=== PATIENT | male | born 1940 | race Caucasian/White ===

== ENCOUNTER 2016-04-08 13:57 | Inpatient (IN) | payer OTHER, BC ==
[~2016-04-08] VITALS: Ht 188 cm; Wt 86.2 kg
--- NOTE | ~2016-04-08 | HC ---
[facility] [place] [address] CONSULTATION Name: EDDASUBHASH Ruthann Room #: 535-P [facility] IN ..#: [id number] Admission: 04/08/16 Attend Phys: Narendra Love MD Discharge: Date of : 40 Report #: [id number] THIS REPORT FOR: //name// CC: Darryl Love DATE OF SERVICE: 04/08/2016 HISTORY OF PRESENT ILLNESS: This is a very pleasant 75-year-old male patient who apparently had a left hip replacement at [facility] approximately 15 days ago. He was eating lunch when he crossed his legs and felt his left hip "pop out of place." The patient said he had significant discomfort and subsequently sought medical attention. Apparently, when he had his hip placed, he was told he had a "myocardial infarction," but upon questioning it appears it was mostly symptomatic bradycardia with significant pauses of up to 8 seconds. He did not have any of the standard myocardial infarction treatment, but did undergo permanent pacemaker. Upon further questioning, he has had a history of vasovagal syncope for quite some time. He also has orthostatic hypotension noted. He is on Eliquis for episodes of paroxysmal atrial fibrillation and had been on amiodarone previously, had been discontinued and reinitiated. He now presented for treatment and consultation obtained for preop risk assessment and cardiovascular management. PAST MEDICAL HISTORY: Significant for: 1. Paroxysmal atrial fibrillation. 2. Vasovagal syncope. 3. Orthostatic hypotension. 4. Degenerative joint disease. ALLERGIES: PENICILLINS. PAST SURGICAL HISTORY: Significant for: 1. Left hip replacement. 2. Back surgery. 3. Permanent pacemaker implantation. SOCIAL HISTORY: The patient is . Does not smoke or consume alcohol. He does not follow particular exercise regimen or dietary restriction. IMAGING STUDIES: Electrocardiogram demonstrates a dual chamber pacing with normal function. LABORATORY DATA: Noted in the chart and reviewed. [facility] [address] [place] [address] CONSULTATION Name: SUBHASH BAÑUELOS Room #: 535-P [facility] IN [facility].#: [id number] Admission: 04/08/16 Attend Phys: Narendra Love MD Discharge: Date of : 40 Report #: [id number] MEDICATIONS AT HOME: Spiriva inhaler, Singulair, Prilosec, Eliquis, Pacerone, magnesium citrate and Mobic. RADIOLOGICAL STUDIES: Left hip bipolar arthroscopy with dislocation as noted. REVIEW OF SYSTEMS: Except for symptoms previously mentioned and those commensurate with comorbid states, the 10-point review of systems is negative. PHYSICAL EXAMINATION: GENERAL: Well-developed and well-nourished white male, resting comfortably, in no acute distress. HEENT: Normocephalic, atraumatic. Pupils are equal, round, reactive to light and accommodation. Extraocular muscles are intact. Sclerae and conjunctivae are anicteric. NECK: JVD is normal. Carotid upstrokes are bilaterally symmetrical. No bruits are heard. No thyromegaly. No lymphadenopathy. LUNGS: Clear to auscultation. No wheezes, rhonchi or crackles. No CVA tenderness. CARDIAC: Demonstrates a regular rhythm. Normal first and second heart sounds. No ventricular or atrial gallops, no rubs noted. No murmurs. No lifts or heaves, PMI normal. ABDOMEN: Soft, nontender, nondistended. Normal bowel sounds. EXTREMITIES: Without cyanosis, clubbing or edema. Distal pulses are intact. DTR symmetrical. NEUROLOGIC: Cranial nerves 2-12 are grossly normal and symmetrical. PSYCHIATRIC: Alert, oriented with normal affect. SKIN: Demonstrates a healing pacemaker incision in the left upper chest. No calor, rubor, or turgor. IMPRESSION AND PLAN: 1. Left hip arthroscopy dislocation as per orthopedic surgery. 2. Vasovagal syncope with symptomatic bradycardia; today, the pacing appears to be stable, no need to make any changes at this juncture. 3. Orthostatic hypotension, no symptoms currently. 4. Paroxysmal atrial fibrillation. He is anticoagulated on amiodarone, doing very well clinically. We will continue this for the moment. 5. Cardiovascular risk assessment: The patient's procedure is going to be done on propofol. In view of this and in view of the absence of any recent ischemic abnormalities or left ventricular dysfunction, he is a low risk for proposed procedure under proposed anesthesia. This denotes a less than 3%-5% risk of cardiac events. <ELECTRONICALLY SIGNED> By: Temo Desai MD 04/09/16 1154 2137 0940 Temo Desai MD /nt
--- NOTE | ~2016-04-08 | HC ---
[facility] [place] [address] CONSULTATION Name: SUBHASH BAÑUELOS Room #: 535-P [facility] IN M.R.#: [id number] Admission: 04/08/16 Attend Phys: Narendra Love MD Discharge: 04/09/16 Date of : 40 Report #: [id number] THIS REPORT FOR: //name// CC: Darryl Love DATE OF CONSULTATION: 04/08/2016. REASON FOR CONSULTATION: Left hip dislocation. HISTORY OF PRESENT ILLNESS: The patient is a 75-year-old gentleman who had a left total hip arthroplasty done by Dr. Aquino at [facility] about 2 weeks ago. He was out to lunch today and crossed his legs and felt a pop in his hip and was unable to walk or stand. He was brought to the Emergency Room and found to have a dislocation of the left total hip arthroplasty. He did have a complication after his surgery of a possible [place] versus sick sinus syndrome and had a pacemaker placed. ALLERGIES: PENICILLIN. PAST MEDICAL HISTORY: Include left total hip replacement, back surgery and pacemaker. SOCIAL HISTORY: Does not smoke, drink or use illicit drugs. MEDICATIONS: Have been reviewed and are on the chart. PHYSICAL EXAMINATION: GENERAL: Well-developed, well-nourished male in no acute distress. He is alert and oriented x 3, pleasant, cooperative with exam. EXTREMITIES: Examination of left lower extremity shows him to hold his leg external rotation and externally rotated and in slight flexion. He has a bandage over his anterolateral hip, possibly being an anterolateral approach. He is neurologically intact distally with 2+ pitting edema of the foot. X-RAY EXAMINATION: AP pelvis, AP, lateral left hip show him to have an anterior superior left hip dislocation. PLAN: We will plan for closed reduction in the operating room once his n.p.o. status has been at 8 hours. We will keep him overnight and have therapy see him in the morning and then be discharged home. I did speak with Dr. Aquino's office and they are aware of his situation and he will follow up with Dr. Aquino once he is discharged. [address] [address] CONSULTATION Name: SUBHASH BAÑUELOS Room #: 535-P [facility] IN M.R.#: [id number] Admission: 04/08/16 Attend Phys: Narendra Love MD Discharge: 04/09/16 Date of : 40 Report #: [id number] Thank you for allowing us to participate in care of the patient. <ELECTRONICALLY SIGNED> By: Pedro Burden MD 04/15/16 2107 2149 0547 Pedro Burden MD /nt
--- NOTE | ~2016-04-08 | O ---
[facility] [place] [address] OPERATIVE REPORT Name: SUBHASH BAÑUELOS Room #: 535-P [facility] IN M.R.#: [id number] Admission: 04/08/16 Attend Phys: Narendra Love MD Discharge: 04/09/16 Date of : 40 Report #: [id number] THIS REPORT FOR: //name// CC: Darryl Love DATE OF SERVICE: 04/08/2016 PREOPERATIVE DIAGNOSIS: Left total hip arthroplasty dislocation. POSTOPERATIVE DIAGNOSIS: Left total hip arthroplasty dislocation. PROCEDURE: Closed reduction, left total hip arthroplasty. SURGEON: Pedro Burden M.D. TUBE CUTTER OPERATOR: Stephanie Amezcua PA-C. ANESTHESIA: MAC. COMPLICATIONS: None. SPECIMENS: None. CONDITION UPON LEAVING THE OPERATING ROOM: Stable. INDICATIONS FOR PROCEDURE: The patient is a 75-year-old gentleman who had a left total hip arthroplasty performed by Dr. Aqunio 2 weeks ago at [facility]. He was at home doing well and was at may today, crossed his legs over and felt an immediate pop in his left hip. He was brought to the emergency room and found to have a left hip dislocation. After discussion with him, he elected for closed reduction of his left hip. DESCRIPTION OF PROCEDURE: Risks, benefits, alternatives, and complications were discussed in detail with the patient including but not limited to risks of anesthesia; risk of damage to nerves, arteries, blood vessels; risks for infection and bleeding; risk for inability to reduce to closed and need for an open procedure. The patient was then brought to the operating room, and monitored anesthesia was induced. Upon adequate anesthesia, timeout was performed, properly identifying the patient and procedure. Pressure was held over the iliac crest by my training assistant, and traction was pulled on the leg, and internal rotation was performed as this was an anterior superior dislocation. There was an obvious pop and reduction of the hip joint. There was smooth range of motion after this. An AP hip x-ray was taken and found to have adequate reduction of the [facility] [address] [place] [address] OPERATIVE REPORT Name: EDDASUBHASH Room #: 535-P [facility] IN M.R.#: [id number] Admission: 04/08/16 Attend Phys: Narendra Love MD Discharge: 04/09/16 Date of : 40 Report #: [id number] hip. He was awoken from anesthesia and went to the recovery room under care of anesthesia postoperatively. <ELECTRONICALLY SIGNED> By: Pedro Burden MD 04/15/16 2107 [id number] [id number] Pedro Burden MD /nt
[2016-04-08] MEDS ORDERED: SINGULAIR 10 MG10 M1 PO (14:09)
[2016-04-08] MEDS ORDERED: SPIRIVA INH (14:09)
[2016-04-08] MEDS ORDERED: ELIQUIS5 MG PO (14:10)
[2016-04-08] MEDS ORDERED: PRILOSEC 20 MG20 MG PO (14:10)
[2016-04-08] MEDS ORDERED: PACERONE 200 M200 M1 PO (14:11)
[2016-04-08] MEDS ORDERED: MAGNESIUM CITR100 MG PO (14:11)
[2016-04-08] MEDS ORDERED: MOBIC7.5 MG PO (14:12)
[2016-04-08 16:19] VITALS: BP 134/73
[2016-04-08] MEDS ORDERED: PRAVACHOL20 MG PO (17:26)
[2016-04-08] MEDS ORDERED: THERA-M1 EAC1 PO (17:27)
[2016-04-08] MEDS ORDERED: PROBIOTIC1 EAC1 PO (17:27)
[2016-04-08] MEDS ORDERED: VITAMIN B125000 MCG PO (17:28)
[2016-04-08 19:13] VITALS: BP 146/86
[2016-04-08 22:10] VITALS: BP 142/75
[2016-04-09 03:10] VITALS: BP 114/59
[2016-04-09 05:43] LABS: HEMATOCRIT 26.7 % (42.0-52.0); MCH 33.6 pg (26.0-34.0); MCHC 33.8 % (28.0-37.0); MCV 99.3 fL (80.0-100.0); RBC 2.69 mil/uL (4.50-6.00); RDW 14.5 % (10.5-14.5); WBC 5.3 thou/uL (4.0-11.0)
[2016-04-09 06:11] LABS: ALBUMIN 3.2 g/dL (3.4-5.0); CALCIUM 8.3 mg/dL (8.5-10.1); CREATININE 1.6 mg/dL (0.6-1.3); POTASSIUM 4.4 mmol/L (3.5-5.1); TOTAL BILIRUBIN 0.8 mg/dL (<0.1-1.0); TOTAL PROTEIN 6.2 g/dL (6.4-8.2)
[2016-04-09 07:06] VITALS: BP 134/78
[2016-04-09 10:01] VITALS: BP 134/78
[2016-04-09 11:41] VITALS: BP 134/78
== END 2016-04-09 12:30 | disposition home or self-care (01) | DRG 560 ==
LOC: ER 13:57 → EROBS 15:21 → 5S 15:32
PROVIDERS: Emergency Medicine
PROC: 0SWBXJZ Revision of Synthetic Substitute in Left Hip Joint, External Approach (ICD-10-PCS; principal; 2016-04-08)
DX: T84.021A Dislocation of internal left hip prosthesis, initial encounter (principal); E44.1 Mild protein-calorie malnutrition; I10 Essential (primary) hypertension; I25.10 Atherosclerotic heart disease of native coronary artery without angina pectoris; Z96.642 Presence of left artificial hip joint; I48.0 Paroxysmal atrial fibrillation; M19.90 Unspecified osteoarthritis, unspecified site; R55 Syncope and collapse; Y83.8 Other surgical procedures as the cause of abnormal reaction of the patient, or of later complication, without mention of misadventure at the time of the procedure; Y92.89 Other specified places as the place of occurrence of the external cause; I25.2 Old myocardial infarction; Z95.0 Presence of cardiac pacemaker; Z88.0 Allergy status to penicillin; Z79.01 Long term (current) use of anticoagulants

== ENCOUNTER → 2017-05-30 | Outpatient (CLI) | payer OTHER, BC ==
[~2017-05-30] MED LIST: ELIQUIS5 MG PO; FLOMAX0.4 MG PO; MAGNESIUM CITR100 MG PO; MOBIC7.5 MG PO; PACERONE 200 M200 M1 PO; PRAVACHOL20 MG PO; PRILOSEC 20 MG20 MG PO; PROBIOTIC1 EAC1 PO; SINGULAIR 10 MG10 M1 PO; SPIRIVA INH; THERA-M1 EAC1 PO; VITAMIN B125000 MCG PO
== END ==
LOC: RAD 14:54
DX: Z01.812 Encounter for preprocedural laboratory examination (principal); I51.7 Cardiomegaly; Z95.0 Presence of cardiac pacemaker

== ENCOUNTER → 2017-05-31 | Outpatient (CLI) | payer OTHER, BC ==
[2017-05-31 16:14] LABS: CREATININE 1.4 mg/dL (0.7-1.3); POTASSIUM 5.1 mmol/L (3.5-5.1)
== END ==
LOC: CAT 15:11
PROVIDERS: Internal Medicine
DX: Z01.812 Encounter for preprocedural laboratory examination (principal)

== ENCOUNTER → 2017-08-30 | Outpatient (CLI) | payer OTHER, BC ==
[~2017-08-30] MED LIST changes: -FLOMAX0.4 MG PO
[2017-08-30 09:08] LABS: HEMATOCRIT 38.2 % (42.0-52.0); MCH 32.6 pg (26.0-34.0); MCHC 33.9 g/dL (28.0-37.0); RBC 3.98 mil/uL (4.50-6.00); RDW 14.7 % (10.5-14.5)
[2017-08-30 09:27] LABS: CALCIUM 9.2 mg/dL (8.5-10.1); CREATININE 1.6 mg/dL (0.7-1.3); POTASSIUM 4.4 mmol/L (3.5-5.1); TOTAL BILIRUBIN 0.7 mg/dL (<0.1-1.0); TOTAL PROTEIN 6.9 g/dL (6.4-8.2)
== END ==
LOC: CAT 06:47 → LABMALL 06:47 → CAT 17:27
PROVIDERS: Internal Medicine
DX: Z01.812 Encounter for preprocedural laboratory examination (principal); I72.9 Aneurysm of unspecified site; I25.10 Atherosclerotic heart disease of native coronary artery without angina pectoris; I48.91 Unspecified atrial fibrillation; I89.8 Other specified noninfective disorders of lymphatic vessels and lymph nodes; M47.894 Other spondylosis, thoracic region

== ENCOUNTER 2017-09-07 07:02 | Inpatient (IN) | payer OTHER, BC ==
[~2017-09-07] VITALS: Ht 182.9 cm; Wt 93.9 kg
--- NOTE | ~2017-09-07 | P ---
[facility] [place] [address] PROCEDURE REPORT Name: SUBHASH BAÑUELOS Room #: 211-P [facility] IN M.R.#: [id number] Admission: 09/07/17 Attend Phys: Nate Frazier MD Discharge: 09/08/17 Date of : 40 Report #: [id number] THIS REPORT FOR: //name// CC: Temo Frazier PREOPERATIVE DIAGNOSIS: Atrial fibrillation. POSTOPERATIVE DIAGNOSIS: Atrial fibrillation. HISTORY: The patient is a 76-year-old with a history of sick sinus syndrome, status post Medtronic pacemaker implantation with recurrent AFib despite antiarrhythmic drugs who is here for an ablation. PROCEDURES PERFORMED: 1. AFib ablation, CPT code 63712. 2. 3D mapping, CPT code 81802. 3. Intracardiac echo, CPT code 35477. 4. Pacemaker programming, CPT code 18462 5. Pacemaker reprogramming, CPT code 79741. ANESTHESIA: The patient underwent general anesthesia with no anesthesia related complications. DESCRIPTION OF PROCEDURE: The patient underwent informed consent. We discussed the details of the procedure including the risks, which include but not limited to bleeding, infection, vascular damage, cardiac perforation and pneumothorax. He understood these risks and is willing to proceed. As such, the patient was brought to the EP laboratory in a fasting and sedated state, prepped and draped in a sterile fashion. I obtained access to the right femoral vein times 3, placing an 8-Tristanian, 9-Tristanian and 7-Tristanian short sheath using the modified Seldinger technique. Next under fluoroscopy, I placed a decapolar catheter easily in the coronary sinus and an ICE catheter in the right atrium. Prior to the initiation of the EP study, his pacemaker was interrogated and found to be functioning normally and it was reprogrammed to the DDD mode. At baseline, the patient was in atrial fibrillation with a ventricular rate of 687 milliseconds, QRS duration 90 milliseconds and QT interval 400 milliseconds. Using intracardiac echocardiography, I verified that there was a left atrial appendage, left superior and left inferior pulmonary vein and right superior and right inferior pulmonary veins. The septum appeared to be mildly thickened. These echo images were then merged with the cardiac CT scan. Next, the patient was systemically heparinized and a transseptal was performed along the mid anterior aspect of the interatrial septum. I used a Evergreen needle for my transseptal and entered the left atrium. I advanced my wire into the left superior pulmonary vein, but I could not advance my SL1 into the left atrium. I therefore removed the SL1 and placed the cryo sheath up and using some gentle [address] [address] PROCEDURE REPORT Name: BAÑUELOSSUBHASH Room #: 211-P [facility] IN M.R.#: [id number] Admission: 09/07/17 Attend Phys: Nate Frazier MD Discharge: 09/08/17 Date of : 40 Report #: [id number] forward pressure this crossed into the left atrium. Next, using a Biosense Lam Lasso catheter, I obtained baseline measurements of the left atrium. Next, I placed the cryoablation balloon into the left atrium. I started by isolating the left superior pulmonary vein. This vein was quite large and the balloon went deeply into the vessel. I did pull it back to prevent excessively cold temperatures. During the first freeze, the vein was isolated within 30 seconds and I performed a 3-minute freeze as well as a 200 second freeze. Afterwards this vein appeared to be isolated. I then turned my attention to the left inferior pulmonary vein. The first freeze was 240 seconds in duration and there was significant slowing of the potentials, but not isolation. So, a second freeze was performed where I pulled the balloon more inferiorly and the vein isolated within 38 seconds. The second freeze was 4 minutes in duration. I then turned my attention to the right superior pulmonary vein. I performed a 4-minute and a 3-minute freeze. The vein isolated during the first freeze at 54 seconds. I then turned my attention to the right inferior pulmonary vein. I performed a 4-minute and a 3-minute freeze. The vein isolated during the first freeze at 46 seconds. As such, I checked all the veins. They appear to be isolated. The patient was cardioverted with 200 joules with orthodox of sinus rhythm. I then performed pacing from all the veins and there was evidence of entrance and exit block. Post-ablation, the patient was in sinus rhythm with a sinus cycle length of 1000 milliseconds, DC interval 230 milliseconds, QRS 97 milliseconds, QT interval 45 milliseconds. As such, my sheaths were pulled to the right atrium. Using intracardiac ultrasound, I verified that there was no pericardial effusion. The pacemaker was reprogrammed to its original settings and I did program on atrial ATP with 4 rounds of burst followed by 4 rounds of ramp in the atrium. The patient awoke neurologically and hemodynamically intact. No complications and no significant bleeding. CONCLUSIONS: 1. Successful AFib ablation with isolation of the pulmonary veins. 2. Successful pacemaker reprogramming. <ELECTRONICALLY SIGNED> By: Nate Frazier MD 09/09/17 1622 1417 0543 Nate Frazier MD /nt
--- NOTE | ~2017-09-07 | D ---
[facility] [place] [address] DISCHARGE SUMMARY Name: SUBHASH BAÑUELOS Room #: 211-P [facility] IN M.R.#: [id number] Admission: 09/07/17 Attend Phys: Nate Frazier MD Discharge: 09/08/17 Date of : 40 Report #: [id number] THIS REPORT FOR: //name// CC: Temo Frazier DATE OF SERVICE: 09/08/2017 DISCHARGE DIAGNOSES: 1. Atrial fibrillation. 2. Sick sinus syndrome, status post pacemaker implantation. PROCEDURES PERFORMED: AFib ablation. The patient is a 76-year-old with history of AFib and sick sinus syndrome who has failed medical management is here for an ablation. The patient underwent successful AFib ablation with no complications. HOSPITAL COURSE: The patient was monitored in the CCU overnight. On the day of discharge, the patient was doing well. He denied any chest pain, shortness of breath, PND, orthopnea, presyncope or syncope. On physical exam, heart was regular in rate and rhythm. Lungs were clear to auscultation bilaterally. His right groin showed no significant bruising or hematoma. On telemetry, he remained in an atrial paced rhythm with no recurrent atrial fibrillation. As such, he was deemed stable for discharge home. Discharge instructions were reviewed. He will continue on same diet. In terms of his medications, he will continue with amiodarone and his current anticoagulation regimen. We will plan to see him back in 3 months in the clinic. <ELECTRONICALLY SIGNED> By: Nate Frazier MD 09/09/17 1622 0850 1002 Nate Frazier MD /nt
[2017-09-07 07:22] VITALS: BP 136/99
[2017-09-07 07:32] LABS: ABSOLUTE NEUTROPHILS 2.6 thou/uL (1.4-8.2); BASOPHILS 1.4 % (0.0-2.0); EOSINOPHILS 6.6 % (0.0-3.0); HEMATOCRIT 37.5 % (42.0-52.0); HEMOGLOBIN 12.9 gm/dL (14.0-18.0); LYMPHOCYTES 30.4 % (24.0-44.0); MCH 33.3 pg (26.0-34.0); MCHC 34.5 g/dL (28.0-37.0); MCV 96.5 fL (80.0-100.0); MONOCYTES 9.5 % (1.0-8.0); PLATELET COUNT 158 thou/uL (150-400); POLYS 52.1 % (36.0-66.0); RBC 3.89 mil/uL (4.50-6.00); RDW 14.8 % (10.5-14.5); WBC 5.1 thou/uL (4.0-11.0)
[2017-09-07 07:38] LABS: CALCIUM 9.2 mg/dL (8.5-10.1); CREATININE 1.6 mg/dL (0.7-1.3); POTASSIUM 4.1 mmol/L (3.5-5.1)
[2017-09-07 07:44] LABS: ALBUMIN 3.9 g/dL (3.4-5.0); APTT 26.8 Seconds (24.5-32.8); INR 1.2; PROTIME 11.8 Seconds (9.3-11.4); TOTAL BILIRUBIN 0.6 mg/dL (<0.1-1.0); TOTAL PROTEIN 7.1 g/dL (6.4-8.2)
[2017-09-07] MEDS ORDERED: FLOMAX0.4 MG PO (07:47)
[2017-09-07 15:33] VITALS: BP 123/77
[2017-09-07 20:20] VITALS: BP 110/61
[2017-09-08 01:17] VITALS: BP 127/67; BP 99/60
[2017-09-08 04:52] VITALS: BP 134/71
[2017-09-08 07:10] VITALS: BP 117/70
[2017-09-08 10:49] VITALS: BP 117/70
== END 2017-09-08 11:05 | disposition home or self-care (01) | DRG 274 ==
LOC: CATH 07:02 → 2N 13:14 → CATH 14:34 → ENTRNSPT 09-08 10:54 → EDTRNSPTSTS 09-08 10:58 → 2N 09-08 11:05
PROVIDERS: Internal Medicine Cardiovascular Disease
PROC: 4A133B1 Monitoring of Arterial Pressure, Peripheral, Percutaneous Approach (ICD-10-PCS; principal; 2017-09-07)
PROC: 02583ZZ Destruction of Conduction Mechanism, Percutaneous Approach (ICD-10-PCS; principal; 2017-09-07)
PROC: 02K83ZZ Map Conduction Mechanism, Percutaneous Approach (ICD-10-PCS; principal; 2017-09-07)
PROC: 03HY32Z Insertion of Monitoring Device into Upper Artery, Percutaneous Approach (ICD-10-PCS; principal; 2017-09-07)
PROC: 4A133J1 Monitoring of Arterial Pulse, Peripheral, Percutaneous Approach (ICD-10-PCS; principal; 2017-09-07)
DX: I48.0 Paroxysmal atrial fibrillation (principal); I49.5 Sick sinus syndrome; J44.9 Chronic obstructive pulmonary disease, unspecified; N18.9 Chronic kidney disease, unspecified; Z96.659 Presence of unspecified artificial knee joint; E78.5 Hyperlipidemia, unspecified; Z79.899 Other long term (current) drug therapy; I42.8 Other cardiomyopathies; Z87.891 Personal history of nicotine dependence; Z88.0 Allergy status to penicillin; Z79.01 Long term (current) use of anticoagulants
CPT/HCPCS: 10081; 62110; 62900; 65020; 65040; 65043; 70005

== ENCOUNTER → 2018-08-23 | Outpatient (CLI) | payer OTHER, BC ==
[~2018-08-23] MED LIST changes: +FLOMAX0.4 MG PO
--- NOTE | 2018-08-23 15:41 | 2DMMODE ---
[facility] [place] [address] 2 D/M-MODE ECHOCARDIOGRAM Name: SUBHASH BAÑUELOS [facility] [id number] ������������� Admission: 08/23/18 ������������� Attend Phys: Nate Frazier Discharge: ��� ������������� ��� Date of : 40 Date of Service: 08/23/18 1541 �� Report #: [id number] �������� ��������������������������������������������[id number] THIS REPORT FOR: //name// APPROVED REPORT Study performed: 08/23/2018 14:08:55 EXAM: Comprehensive 2D, Doppler, and color-flow Echocardiogram Patient Location: Out-Patient Room #: Echo lab 1 Status: routine BSA: 2.08 HR: 71 bpm BP: 110/54 mmHg Rhythm: Pacemaker Other Information Study Quality: Adequate Indications Pacemaker Fatigue 2D Dimensions IVSd: 15.48 (7-11mm) LVOT Diam: 20.74 (18-24mm) LVDd: 41.51 mm PWd: 13.63 (7-11mm) Ascending Ao: 38.41 (22-36mm) LVDs: 28.59 (25-40mm) Aortic Root: 37.69 mm IVC: 9.00 mm Volumes Left Atrial Volume (Systole) Single Plane 4CH: 90.61 mL Single Plane 2CH: 86.79 mL LA ESV Index: 45.00 mL/m2 Aortic Valve AoV Peak Raleigh.: 1.25 m/s AO Peak Gr.: 6.25 mmHg LVOT Max P.37 mmHg LVOT Max V: 1.05 m/s GEETA Vmax: 2.82 cm2 Mitral Valve E/A Ratio: 3.4 MV Decel. Time: 240.18 ms MV E Max Raleigh.: 0.91 m/s [facility] [address] [place] [address] 2 D/M-MODE ECHOCARDIOGRAM Name: BAÑUELOSSUBHASH COATS Room #: REG [facility]#: [id number] ������������� Admission: 08/23/18 ������������� Attend Phys: Nate Frazier Discharge: ��� ������������� ��� Date of : 40 Date of Service: 08/23/18 1541 �� Report #: [id number] �������� ��������������������������������������������[id number] MV A Raleigh.: 0.27 m/s MV PHT: 69.65 ms IVRT: 59.98 ms Pulmonary Valve PV Peak Raleigh.: 1.05 m/s PV Peak Gr.: 4.43 mmHg Pulmonary Vein P Vein S: 0.33 m/s P Vein A: 0.22 m/s P Vein D: 0.67 m/s P Vein A Dur.: 161.5 msec P Vein S/D Ratio: 0.49 Left Ventricle The left ventricle is normal size. Mild to moderate concentric left ventricular hypertrophy. The left ventricular systolic function is normal. The left ventricular ejection fraction is within the normal range. LVEF is 55-60%. The left ventricular diastolic function is normal. Right Ventricle The right ventricle is normal size. The right ventricular systolic function is normal. Pacemaker lead is present in the right ventricle. Atria Left atrium is dilated. Right atrium is at the upper limits of normal. Pacemaker lead is present in the right atrium. Aortic Valve The aortic valve is normal in structure. Mild aortic regurgitation. There is no aortic valvular stenosis. Mitral Valve The mitral valve is normal in structure. Mild mitral regurgitation. No evidence of mitral valve stenosis. Tricuspid Valve The tricuspid valve is normal in structure. There is no tricuspid valve regurgitation noted. Pulmonic Valve The pulmonary valve is normal in structure. Mild pulmonic regurgitation. Great Vessels The aortic root is normal in size. IVC is normal in size and collapses >50% with inspiration. [facility] [address] [place] [address] 2 D/M-MODE ECHOCARDIOGRAM Name: EDDASUBHASH JORGE L [facility] [id number] ������������� Admission: 08/23/18 ������������� Attend Phys: [facility] Discharge: ��� ������������� ��� Date of : 40 Date of Service: 08/23/18 1541 �� Report #: [id number] �������� ��������������������������������������������[id number] Pericardium There is no pericardial effusion. <Conclusion> The left ventricle is normal size. The right ventricle is normal size. Pacemaker lead is present in the right ventricle. Left atrium is dilated. Right atrium is at the upper limits of normal. Pacemaker lead is present in the right atrium. The aortic valve is normal in structure. Mild aortic regurgitation. The mitral valve is normal in structure. Mild mitral regurgitation. The tricuspid valve is normal in structure. The pulmonary valve is normal in structure. Mild pulmonic regurgitation. There is no pericardial effusion. ��������������������������������������������� <ELECTRONICALLY SIGNED> ���������������������������������������� By: Temo Desai MD ��������������������������������������������� 08/23/18 1541 1541 1541 Temo Desai MD /INF
== END ==
LOC: CV 13:32
DX: I08.8 Other rheumatic multiple valve diseases (principal); I48.0 Paroxysmal atrial fibrillation; Z95.0 Presence of cardiac pacemaker

== ENCOUNTER 2019-03-16 06:23 | Observation (INO) | payer OTHER, BC ==
[2019-03-16] VITALS (11 sets, daily range): BP systolic 100–127; BP diastolic 57–80
[~2019-03-16] VITALS: Ht 182.9 cm; Wt 97.1 kg
--- NOTE | ~2019-03-16 | P ---
[facility] [place] [address] PROCEDURE REPORT Name: SBUHASH BAÑUELOS Room #: 160-2 [facility] M..#: [id number] Admission: 03/16/19 Attend Phys: Nate Frazier MD Discharge: Date of : 40 Report #: [id number] THIS REPORT FOR: //name// CC: Darryl Frazier DATE OF SERVICE: 03/16/2019 PROCEDURE: Atrial fibrillation ablation. PREOPERATIVE DIAGNOSIS: Atrial fibrillation. POSTOPERATIVE DIAGNOSIS: Atrial fibrillation. HISTORY: The patient is a 78-year-old with history of atrial fibrillation and sick sinus syndrome, status post Medtronic pacemaker implantation. The patient underwent prior AFib ablation back in 08/2017. He has had clinical recurrence of atrial fibrillation. He has also recently been diagnosed with hyperthyroidism and has been treated with methimazole with improvement in his thyroid function. PROCEDURES PERFORMED: 1. Preprocedure pacemaker reprogramming, CPT code 57977. 2. Post-procedure pacemaker reprogramming, CPT code 75156. 3. Atrial fibrillation ablation, CPT code 99282. 4. 3D mapping, CPT code 82315. 5. Intracardiac echo, CPT code 85840. 6. Focal ablation, CPT code 59293. 7. Second pathway ablation, CPT code 18281. ANESTHESIA: The patient underwent general anesthesia with no anesthesia related complications. DESCRIPTION OF PROCEDURE: The patient underwent informed consent. We discussed the details of the procedure including the risks, which include but not limited to bleeding, infection, vascular damage, cardiac perforation as well as stroke or SC. He understood these risks and is willing to proceed. The patient was brought to the EP laboratory in a fasting and sedated state, prepped and draped in a sterile fashion. His pacemaker was reprogrammed to VVI 50 mode. Next, lidocaine was injected in bilateral groin regions and obtained access to the bilateral femoral veins placing two 8-Comoran short sheaths in the right femoral vein and a 7 and 9-Comoran short sheath in the left femoral vein. Next, under fluoroscopy, I placed a decapolar catheter easily in the coronary sinus. ICE catheter was placed in the right atrium. Of note, at the time of my last procedure, I did have difficulties obtaining transseptal access due to [facility] [address] [place] [address] PROCEDURE REPORT Name: SUBHASH BAÑUELOS JORGE L Room #: 160-2 [facility] M..#: [id number] Admission: 03/16/19 Attend Phys: Nate Frazier MD Discharge: Date of : 40 Report #: [id number] thickened interatrial septum. Next, the patient was systemically heparinized and a transseptal was performed using an SL1 sheath and a Ellinger needle. Of note, he did have a large right atrium and left atrium. I initially tried using my standard Ellinger needle, but there was not enough reach, so I transitioned to the larger curve needle. After 3 attempts, I was able to finally get transseptal. I had some difficulties getting tied up on the atrial and ventricular leads when trying to go transseptal. I was able to get my guidewire into the left superior pulmonary vein, but I could not advance the SL1 sheath into the left atrium. Therefore, I tried to exchange the SL1 sheath for the Agilis sheath and this would not cross either. Therefore, I went back with the SL1 sheath and using a Powerflex Pro 6 mm x 4 cm balloon, I dilated the interatrial septum and then I was able to cross with the SL1 into the left atrium. I then exchanged for the Agilis sheath. Transseptal procedure took about 45 minutes. At baseline, the patient was in atrial fibrillation and using a PentaRay I created a detailed 3D voltage map of the left atrium. All 4 pulmonary veins remained isolated; however, there were extensive atrial fractionated signals along the posterior wall. Therefore, I started by creating a posterior roofline. After completing this, I repeated my voltage map and it appeared that we had isolated most of the left atrium posterior wall. However, there were still some signals along the danielle around the isolated left-sided veins. I therefore ablated from the superior to inferior aspect near the left-sided veins. I also created a mitral isthmus line and also performed substrate modification where there were fractionated and large signals below the right inferior pulmonary vein. It definitely appeared that his atrial fibrillation was organizing and slowing, but I could not get this to terminate. I repeated a voltage map and it appeared that we had isolated most of the posterior wall. I therefore did additional ablation along the ridge between the appendage and the left superior pulmonary vein and also ablated along the anterior roof region and took care of signals here as well. At this point, the CS appeared to be more organized, although it still was in atrial fibrillation. The coronary sinus signals were very small. Therefore, I pulled my ablation catheter and performed isolation of the coronary sinus. I ablated in the coronary sinus at 20 fowler and started at the distal coronary sinus and pulled all the way to the coronary sinus ostium. Post-ablation, there were very small signals remaining. At this point, I performed a cardioversion and I decided to proceed with atrial flutter ablation. Atrial flutter ablation: Prior to ablation, the patient was now in sinus rhythm after the cardioversion. The transisthmus conduction time was 90 milliseconds. Ablation was performed at 40 fowler using the SmartTouch ThermoCool ablation catheter via the Agilis sheath. My initial line did not result in block as the transisthmus conduction time only increased to about 100 milliseconds. I therefore went more septal and performed a second line and then post-ablation there was clearly bidirectional block with transisthmus conduction time of 220 milliseconds. As such, extensive ablation had been performed during this procedure. Post-ablation voltage map of the left atrium showed that the entire [facility] [address] [place] [address] PROCEDURE REPORT Name: SUBHASH BAÑUELOS Room #: 160-2 [facility] M.R.#: [id number] Admission: 03/16/19 Attend Phys: Nate Frazier MD Discharge: Date of : 40 Report #: [id number] posterior wall was now isolated and we now had bidirectional block along the cavotricuspid isthmus. It also appeared that the coronary sinus was isolated as well. As such, using intracardiac ultrasound, I verified there was no pericardial effusion. The patient received systemic protamine and once ACT was within acceptable range, all catheters and sheaths were pulled. His Medtronic pacemaker was programmed to DDD 70-130 mode. I did program on atrial therapies including atrial ATP with burst and ramp sequences. CONCLUSIONS: 1. Successful atrial fibrillation ablation. 2. Persistence of isolation of the 4 pulmonary veins from prior ablation. 3. Successful creation of a posterior wall isolation. 4. Successful mitral annular line. 5. Isolation of the coronary sinus. 6. Successful atrial flutter ablation with evidence of bidirectional block. By: [id number] [id number] Nate Frazier MD /nt
--- NOTE | ~2019-03-16 | D ---
[facility] [place] [address] DISCHARGE SUMMARY Name: SUBHASH BAÑUELOS Room #: 212-P [facility] Stephan Christine#: [id number] Admission: 03/16/19 Attend Phys: Nate Frazier MD Discharge: 03/17/19 Date of : 40 Report #: [id number] THIS REPORT FOR: //name// CC: Darryl Frazier DATE OF SERVICE: 03/17/2019 ADMITTING DIAGNOSIS: Atrial fibrillation, symptomatic. DISCHARGE DIAGNOSES: 1. Symptomatic atrial fibrillation. 2. Hypertension. 3. Acid peptic disease. 4. Dyslipidemia. DISCHARGE MEDICATIONS: Dulera, lactobacillus, multivitamin, apixaban, Singulair, Protonix, Tapazole, Toprol-XL, Multaq. FOLLOWUP: Dr. Frazier in 4 weeks. PROCEDURE PERFORMED: Atrial fibrillation ablation under general anesthesia. DISCHARGE DIET: Heart healthy [place] [employer] step 1 diet. BRIEF CLINICAL HISTORY: See history and physical in the chart. HOSPITAL COURSE: The patient was admitted to the hospital for elective atrial fibrillation. This was performed by Dr. Frazier without complications. There were extensive areas of ablation that was required to perform and it was noted. There were no complications with the procedure. The patient subsequently was allowed to ambulate and following adequate urine output and ambulation without difficulty was discharged to home in stable and improved condition to follow up with the previously stated discharge instructions and medications. By: 0101 0135 Temo Desai MD /jarrod
[2019-03-16] MEDS ORDERED: DULERA 100 MCG/13 GM INH (07:28)
[2019-03-16] MEDS ORDERED: TOPROL XL50 MG PO (07:29)
[2019-03-16] MEDS ORDERED: TAPAZOLE5 MG PO (07:29)
[2019-03-16 07:41] LABS: ABSOLUTE NEUTROPHILS 2.6 thou/uL (1.4-8.2); BASOPHILS 1.3 % (0.0-2.0); EOSINOPHILS 6.8 % (0.0-3.0); HEMATOCRIT 39.2 % (42.0-52.0); LYMPHOCYTES 32.9 % (24.0-44.0); MCH 33.1 pg (26.0-34.0); MCHC 33.2 g/dL (28.0-37.0); MCV 99.7 fL (80.0-100.0); MONOCYTES 7.3 % (1.0-8.0); PLATELET COUNT 205 thou/uL (150-400); POLYS 51.7 % (36.0-66.0); RBC 3.93 mil/uL (4.50-6.00); RDW 13.2 % (10.5-14.5); WBC 5.1 thou/uL (4.0-11.0)
[2019-03-16 07:49] LABS: INR 1.1; PROTIME 11.3 Seconds (9.3-11.4)
[2019-03-16 07:59] LABS: ALBUMIN 3.9 g/dL (3.4-5.0); CALCIUM 9.3 mg/dL (8.5-10.1); CREATININE 1.4 mg/dL (0.7-1.3); POTASSIUM 4.2 mmol/L (3.5-5.1); TOTAL BILIRUBIN 0.7 mg/dL (<0.1-1.0); TOTAL PROTEIN 7.1 g/dL (6.4-8.2)
[2019-03-16] MEDS ORDERED: MULTAQ 400 MG400 MG PO (14:29)
[2019-03-16] MEDS ORDERED: PROTONIX40 M2 PO (14:31)
--- NOTE | 2019-03-16 17:07 | NUR ---
PT CARE ASSUMED APPROX 1440. ADMITTED POST ABLATION. PT DENIES SOA. REPORTS PAIN TO LOWER BACK. PT ALSO REPORTS [place] PAIN MANAGEMENT AND IS CONFIDENT PAIN WILL RESOLVE ONCE BEDREST IS COMPLETE. KNIGHT PATENT AND TO BE REMOVED ONCE BEDREST COMPLETED. BILATERAL GROIN SITES C/D/I. PT DENIES QUESTIONS OR CONCERNS REGARDING POC. TOLERATING POC. POST CATH VSS. NO DISTRESS NOTED.
[2019-03-17 04:45] VITALS: BP 119/75
--- NOTE | 2019-03-17 08:18 | NUR ---
ASSUME CARE 1900. PT A/O X 4. STABLE WITH ,ILD INTERMITTENT BACK PAIN NOTED. TOLERATES ACTIVITY WELL. PT HAS A PACEMAKER BUT WAS RARELY PACED THROUGH THE NIGHT. AFIB NOTED THROUGH THE NIGHT WITH HR IN LOW 100s AND ONE-TEENS. BILATERAL GROIN SITES CDI. POOR REST NOTED THROUGH THE NIGHT. WILL CONTINUE TO MONITOR AND FOLLOW WITH POC
[2019-03-17 09:10] VITALS: BP 125/80
[2019-03-17 12:09] VITALS: BP 106/64
[2019-03-17 14:21] VITALS: BP 106/64
--- NOTE | 2019-03-17 15:10 | NUR ---
ASSUMED CARE AT SHIFT CHANGE, ALERT AND ORIENTED X4. VSS AND AFIB AND PACED ON THE MONITOR. ADAM GROIN SITE INTACT. DISCHARGE AND MEDICATION INSTRUCTIONS GIVEN TO PATIENT AND HE VERBALIZED UNDERSATNDING. PATIENT WAITING FOR A RIDE TO GO HOME.
== END 2019-03-17 15:30 | disposition home or self-care (01) ==
LOC: CATH 06:23 → TBACV 06:45 → CATH 11:33 → 2N 14:37
PROVIDERS: ADMIT Internal Medicine Cardiovascular Disease
DX: I48.91 Unspecified atrial fibrillation (principal); I10 Essential (primary) hypertension; E78.5 Hyperlipidemia, unspecified; K21.9 Gastro-esophageal reflux disease without esophagitis
CPT/HCPCS: 62110; 62900; 65020; 65040; 70005

== ENCOUNTER 2019-03-17 21:23 | Emergency (ER) | payer OTHER, BC ==
[~2019-03-17] VITALS: Ht 182.9 cm; Wt 93.0 kg
[~2019-03-17 21:23] MED LIST changes: +DULERA 100 MCG/13 GM INH; +MULTAQ 400 MG400 MG PO; +PROTONIX40 M2 PO; +TAPAZOLE5 MG PO; +TOPROL XL50 MG PO
[2019-03-17 21:43] LABS: ABSOLUTE NEUTROPHILS 5.9 thou/uL (1.4-8.2); BASOPHILS 0.4 % (0.0-2.0); EOSINOPHILS 0.6 % (0.0-3.0); HEMATOCRIT 33.9 % (42.0-52.0); HEMOGLOBIN 11.5 gm/dL (14.0-18.0); LYMPHOCYTES 11.5 % (24.0-44.0); MCH 33.8 pg (26.0-34.0); MCHC 33.9 g/dL (28.0-37.0); MCV 99.8 fL (80.0-100.0); MONOCYTES 8.4 % (1.0-8.0); PLATELET COUNT 168 thou/uL (150-400); POLYS 79.1 % (36.0-66.0); RDW 13.2 % (10.5-14.5); WBC 7.5 thou/uL (4.0-11.0)
[2019-03-17 21:53] LABS: CALCIUM 8.6 mg/dL (8.5-10.1); CREATININE 1.7 mg/dL (0.7-1.3); POTASSIUM 4.3 mmol/L (3.5-5.1)
[2019-03-17 22:12] LABS: TROPONIN-I 2.16 ng/mL (<0.06)
[2019-03-17 23:35] VITALS: BP 109/65
--- NOTE | 2019-03-18 16:23 | EKG ---
[place] [address] [place] [address] ELECTROCARDIOGRAM REPORT Name: SUBHASH BAÑUELOS Room #: DEP Emmett#: [id number] Admission: 03/17/19 Attend Phys: Discharge: 03/17/19 Date of : 40 Report #: [id number] THIS REPORT FOR: //name// [facility] ED Test Date: 2019-03-17 Test Time: 21:28:42 Pat Name: SUBHASH BAÑUELOS Department: Room: Gender: M Title Coordinator: ANTON : 1940 Requested By: Subhash Garcia Order Number: [id number] MD: Temo Desai Measurements Intervals Energy Rate: 107 P: [place]: QRS: 47 QRSD: 94 T: 148 QT: 371 QTc: 495 Interpretive Statements Atrial fibrillation increased ventricular response Low voltage in limb leads Abnormal R-wave progression Nonspecific ST-T wave changes No previous ECG available for comparison Electronically Signed On 03-18-2019 16:23:16 [employer] by Temo Desai [email or web address] <ELECTRONICALLY SIGNED> By: Temo Desai MD 03/18/19 1623 2128 2128 Teom Desai MD /MEGAN
== END 2019-03-17 23:30 | disposition home or self-care (01) ==
LOC: ER 21:23
PROVIDERS: Emergency Medicine
DX: I48.91 Unspecified atrial fibrillation (principal); R06.00 Dyspnea, unspecified; I10 Essential (primary) hypertension; J44.9 Chronic obstructive pulmonary disease, unspecified; Z96.642 Presence of left artificial hip joint; Z96.651 Presence of right artificial knee joint; Z95.0 Presence of cardiac pacemaker; Z88.0 Allergy status to penicillin

== ENCOUNTER → 2019-03-26 | Outpatient (CLI) | payer OTHER, BC ==
[~2019-03-26] VITALS: Ht 182.9 cm; Wt 93.0 kg
--- NOTE | ~2019-03-26 | P ---
[facility] [place] [address] PROCEDURE REPORT Name: SUBHASH BAÑUELOS Room #: [facility] Chad.#: [id number] Admission: 03/26/19 Attend Phys: Nate Frazier MD Discharge: Date of : 40 Report #: [id number] THIS REPORT FOR: cc: Darryl Varela MD, J. Christopher MD Couchonnal, Luis F. MD ~ THIS REPORT FOR: //name// CC: Darryl Frazier CARDIOVERSION REPORT PREOPERATIVE DIAGNOSIS: Atrial fibrillation. POSTOPERATIVE DIAGNOSIS: Atrial fibrillation. PROCEDURES PERFORMED: DC cardioversion. DESCRIPTION OF PROCEDURE: The patient underwent informed consent. He was prepped in a standard fashion. He was sedated by the Anesthesiology service and once sedated, underwent a 200 joule synchronized cardioversion with jewish of sinus rhythm. There were no procedure related complications. His device was interrogated and found to be functioning normally. By: 1242 35 Nate Frazier MD /nt
[2019-03-26 12:53] VITALS: BP 130/78
[2019-03-26 13:09] LABS: BASOPHILS 0.9 % (0.0-2.0); EOSINOPHILS 4.6 % (0.0-3.0); HEMATOCRIT 39.2 % (42.0-52.0); LYMPHOCYTES 18.8 % (24.0-44.0); MCH 33.5 pg (26.0-34.0); MCHC 33.2 g/dL (28.0-37.0); MCV 100.7 fL (80.0-100.0); MONOCYTES 8.8 % (1.0-8.0); PLATELET COUNT 236 thou/uL (150-400); POLYS 66.9 % (36.0-66.0); RBC 3.89 mil/uL (4.50-6.00); RDW 13.2 % (10.5-14.5)
[2019-03-26 13:16] LABS: CALCIUM 9.5 mg/dL (8.5-10.1); CREATININE 1.5 mg/dL (0.7-1.3); POTASSIUM 4.3 mmol/L (3.5-5.1)
[2019-03-26 13:22] LABS: TOTAL BILIRUBIN 0.9 mg/dL (<0.1-1.0); TOTAL PROTEIN 7.7 g/dL (6.4-8.2)
[2019-03-26 13:25] LABS: INR 1.2; PROTIME 12.8 Seconds (9.3-11.4)
== END | disposition home or self-care (01) ==
LOC: CATH 11:22
PROVIDERS: Internal Medicine Cardiovascular Disease
DX: I48.91 Unspecified atrial fibrillation (principal); I12.9 Hypertensive chronic kidney disease with stage 1 through stage 4 chronic kidney disease, or unspecified chronic kidney disease; N18.9 Chronic kidney disease, unspecified; E78.5 Hyperlipidemia, unspecified; I25.2 Old myocardial infarction; J44.9 Chronic obstructive pulmonary disease, unspecified; M19.90 Unspecified osteoarthritis, unspecified site; I42.9 Cardiomyopathy, unspecified; Z98.890 Other specified postprocedural states; Z79.899 Other long term (current) drug therapy; Z79.01 Long term (current) use of anticoagulants; Z87.891 Personal history of nicotine dependence; Z96.642 Presence of left artificial hip joint; Z95.0 Presence of cardiac pacemaker; Z96.651 Presence of right artificial knee joint; Z88.2 Allergy status to sulfonamides
CPT/HCPCS: 62110; 62900

== ENCOUNTER → 2019-08-07 | Outpatient (CLI) | payer OTHER, BC | LOC: SJCVC 14:11 | PROVIDERS: ATTEND Internal Medicine Cardiovascular Disease | DX: I48.0 Paroxysmal atrial fibrillation (principal); R94.31 Abnormal electrocardiogram [ECG] [EKG]; I49.5 Sick sinus syndrome; E78.5 Hyperlipidemia, unspecified; I10 Essential (primary) hypertension; J44.9 Chronic obstructive pulmonary disease, unspecified; Z79.899 Other long term (current) drug therapy; Z87.891 Personal history of nicotine dependence; Z95.0 Presence of cardiac pacemaker ==

== ENCOUNTER → 2019-08-10 | Outpatient (CLI) | payer OTHER, BC | LOC: SJCVCIMAG 10:20 | DX: I08.3 Combined rheumatic disorders of mitral, aortic and tricuspid valves (principal); I48.91 Unspecified atrial fibrillation; R06.00 Dyspnea, unspecified; Z95.0 Presence of cardiac pacemaker ==

== ENCOUNTER → 2019-08-20 | Outpatient (CLI) | payer OTHER, BC | LOC: SJCVC 13:23 | DX: I48.91 Unspecified atrial fibrillation (principal); I44.0 Atrioventricular block, first degree; E78.5 Hyperlipidemia, unspecified; J44.9 Chronic obstructive pulmonary disease, unspecified; Z79.899 Other long term (current) drug therapy; Z95.0 Presence of cardiac pacemaker; Z87.891 Personal history of nicotine dependence ==

== ENCOUNTER → 2019-08-29 | Outpatient (CLI) | payer OTHER, BC | LOC: SJCVCIMAG 10:09 | PROVIDERS: ATTEND Internal Medicine | DX: R06.00 Dyspnea, unspecified (principal); I48.91 Unspecified atrial fibrillation; E78.5 Hyperlipidemia, unspecified; J44.9 Chronic obstructive pulmonary disease, unspecified; Z87.891 Personal history of nicotine dependence ==

== ENCOUNTER → 2019-09-18 | Outpatient (CLI) | payer OTHER, BC | LOC: SJCVC 15:06 | PROVIDERS: ATTEND Internal Medicine Cardiovascular Disease | DX: Z45.018 Encounter for adjustment and management of other part of cardiac pacemaker (principal); R94.31 Abnormal electrocardiogram [ECG] [EKG]; I48.0 Paroxysmal atrial fibrillation; I49.5 Sick sinus syndrome; E78.5 Hyperlipidemia, unspecified; Z79.899 Other long term (current) drug therapy; Z87.891 Personal history of nicotine dependence ==

== ENCOUNTER 2019-10-24 16:35 | Outpatient (CLI) | payer OTHER, BC ==
[~2019-10-24] VITALS: Ht 182.9 cm; Wt 90.7 kg
[2019-10-24 11:47] VITALS: BP 140/72
[2019-10-24 11:56] LABS: HEMOGLOBIN 13.3 gm/dL (14.0-18.0); MCH 32.7 pg (26.0-34.0); MCHC 34.2 g/dL (28.0-37.0); MCV 95.7 fL (80.0-100.0); RBC 4.07 mil/uL (4.50-6.00); RDW 14.2 % (10.5-14.5); WBC 4.8 thou/uL (4.0-11.0)
[2019-10-24 12:17] LABS: CALCIUM 9.2 mg/dL (8.5-10.1); CREATININE 1.3 mg/dL (0.7-1.3); POTASSIUM 4.3 mmol/L (3.5-5.1)
--- NOTE | 2019-10-24 13:38 | EKG ---
[facility] [place] [address] ELECTROCARDIOGRAM REPORT Name: SUBHASH BAÑUELOS Room #: [facility].#: [id number] Admission: Attend Phys: Temo Desai Discharge: Date of : 40 Report #: [id number] THIS REPORT FOR: cc: Darryl Varela MD, J. Christopher MD Couchonnal, Luis F. MD ~ THIS REPORT FOR: //name// [facility] Test Date: 2019-10-24 Test Time: 11:28:14 Pat Name: SUBHASH BAÑUELOS Department: Room: Gender: Mortgage Advisor: [facility] : 1940 Requested By: Temo Desai Order Number: [id number] MD: Nate Frazier Measurements Intervals Kathryn Rate: 80 P: NC: 72 QRS: 43 QRSD: 93 T: 49 QT: 426 QTc: 492 Interpretive Statements Atrial-paced complexes Low voltage, extremity leads Minimal ST depression, lateral leads Borderline prolonged QT interval Baseline wander in lead(s) V4 Compared to ECG 03/17/2019 21:28:42 Atrial fibrillation no longer present ST (T wave) deviation still present Electronically Signed On 10-24-2019 13:38:21 CDT by Nate Frazier [email or web address] <ELECTRONICALLY SIGNED> By: Nate Frazier MD 10/24/19 1338 1128 1128 Nate Frazier MD /EPI
[2019-10-24 16:30] VITALS: BP 120/60
[~2019-10-24 16:35] MED LIST changes: +PROAIR HFA8.5 GM INH; +SYMBICORT160 MCG/4. INH
[2019-10-24 16:45] VITALS: BP 140/75
[2019-10-24 17:00] VITALS: BP 110/67
[2019-10-24 17:15] VITALS: BP 132/87
--- NOTE | 2019-10-24 17:26 | NUR ---
PT ARRIVED TO ROOM 211 AT 1430. R GROIN C/D/I. PT TO DC AT 1800. VSS. NO HEMATOMA. NO COMPLAINTS. WILL CONTINUE TO MONITOR.
[2019-10-24 17:45] VITALS: BP 132/87
--- NOTE | 2019-11-03 23:57 | CATHLAB ---
[facility] [place] [address] INVASIVE PROCEDURE REPORT Name: EDDASBUHASH Ruthann Room #: DEP MARILIN Christine#: [id number] Admission: 10/24/19 Attend Phys: Temo Desai Discharge: 10/24/19 Date of : 40 Report #: [id number] THIS REPORT FOR: cc: Darryl Varela MD, J. Christopher MD Lammoglia, Francisco J. MD ~ APPROVED REPORT Study performed: 10/24/2019 13:54:16 Patient Details Patient Status: Out-Patient Room #: The patient is a 79 year-old male Event Personnel Temo Desai Pluck Separator, Carlos Kaba RN RN, Peggy Simental RTR Monitor, Mary Ann Sewell RTR Scrub Procedures Performed Art Access - R femoral artery* Left Heart Cath w/or w/o Coronaries [id number] [facility] [address] Initial Mod Sed Same Phys/QHP Gr 175959 01190 Mod Sed Same Phys/QHP Ea 600081 Hemostasis w/ Mynx, supervision of conscious sedation Indication Pre-op clearance Procedure Narrative The Right Groin^ was infiltrated with 1% Lidocaine subcutaneous anesthesia. A PINNACLE 4FR Sheath #[id number] sheath was inserted into the RFA^. Coronary angiography was performed using coronary diagnostic catheters. The right coronary system was accessed and visualized with a JR4 catheter. The left coronary system was accessed and visualized with a JL5 catheter. The left ventricle was accessed and visualized with a PIGTAIL catheter. Closure device was deployed with a Fr MYNXGRIP 6/7F [id number]. The patient tolerated the procedure well and there were no complications associated with the procedure. There was no hematoma. Intraoperative Conscious Sedation Sedation start time: 14:37 Case end Time: 15:13 Versed 4 mg [facility] [place] [address] INVASIVE PROCEDURE REPORT Name: SUBHASH BAÑUELOS Room #: [facility] Emmett#: [id number] Admission: 10/24/19 Attend Phys: Temo Joseph Discharge: 10/24/19 Date of : 40 Report #: [id number] Fluoro Time: 810.00 minutes Dose: DAP 4920.20 cGycm2 810 mGy Contrast Type and Amount: Omnipaque 50 ml Coronary Angiography The patient's coronary anatomy is right dominant. Diagnostic Cath Left Main Large caliber normal origin bifurcates into LAD and LCX arteries. mild proximal taper of less than 35% noted LAD Moderate caliber type III vessel which coarses in then anterior interventricular sulcus giving rise to diagonal and septal braches in its coarse tapering rapidly beyond its mid portion.there are some mild irregularities in its terminal portion Diagonal 1 diminuitive vessel no highgrade lesions Diagonal 2 diminuitive vessel without significant stenosis Circumflex Moderate cakiber nondominant vessel which rise to a small early marginal. it then continues with a second small caliber marginal and then terminanates as a dimiuitive posterior wall branch OM1 small caliber vessel with mild luminal irregularities OM2 small to moderate caliber vessel with mild luminal irregularities Right Coronary Moderate to large caliber vessel of normal origin proceeds in the av groove to the acute margin. in its course several RV branches arise all free of highgrade lesions. the vessel continue to crux of the heart where posterior descending and posterior wall branches are present. No highgrade lesions are noted R PDA small caliber vessel free of high grade lesions Left Ventriculography Left Ventriculography was not performed. Hemodynamics The aortic pressure is 143/73 mmHg with a mean of 103 mmHg. The left ventricular pressure is 137/16 mmHg with a mean of mmHg. The left ventricular end diastolic pressure is 20 mmHg. Conclusion 1. Minimal Coronary Artery Disease with mild plaquing 2. Normal Hemodynamics Recommendations [facility] [address] [place] [address] INVASIVE PROCEDURE REPORT Name: SUBHASH BAÑUELOS Room #: DEP [facility]#: [id number] Admission: 10/24/19 Attend Phys: Temo Joseph Discharge: 10/24/19 Date of : 40 Report #: [id number] Cardiac Risk Reduction Program Medical Therapy <ELECTRONICALLY SIGNED> By: Temo Desai MD 11/03/192356 56 56 Temo Desai MD /INF
== END 2019-10-24 18:30 | disposition home or self-care (01) ==
LOC: CATH 16:35 → 2N 16:36 → CATH 18:30
PROVIDERS: ATTEND Internal Medicine
DX: R06.00 Dyspnea, unspecified (principal); I25.10 Atherosclerotic heart disease of native coronary artery without angina pectoris; I12.9 Hypertensive chronic kidney disease with stage 1 through stage 4 chronic kidney disease, or unspecified chronic kidney disease; N18.9 Chronic kidney disease, unspecified; E78.5 Hyperlipidemia, unspecified; M19.90 Unspecified osteoarthritis, unspecified site; J44.9 Chronic obstructive pulmonary disease, unspecified; I42.9 Cardiomyopathy, unspecified; I48.91 Unspecified atrial fibrillation; Z98.890 Other specified postprocedural states; Z79.899 Other long term (current) drug therapy; Z95.0 Presence of cardiac pacemaker; Z87.891 Personal history of nicotine dependence; Z96.651 Presence of right artificial knee joint; Z98.49 Cataract extraction status, unspecified eye; Z88.0 Allergy status to penicillin; Z79.01 Long term (current) use of anticoagulants
CPT/HCPCS: 10081

== ENCOUNTER → 2019-11-27 | Outpatient (CLI) | payer OTHER, BC | LOC: SJCVC 14:01 | PROVIDERS: ATTEND Internal Medicine Cardiovascular Disease | DX: R94.31 Abnormal electrocardiogram [ECG] [EKG] (principal); I49.5 Sick sinus syndrome; I48.0 Paroxysmal atrial fibrillation; I48.91 Unspecified atrial fibrillation; I10 Essential (primary) hypertension; E03.9 Hypothyroidism, unspecified; E78.5 Hyperlipidemia, unspecified; J44.9 Chronic obstructive pulmonary disease, unspecified; I42.8 Other cardiomyopathies; Z79.899 Other long term (current) drug therapy ==

== ENCOUNTER → 2020-05-28 | Outpatient (CLI) | payer OTHER, BC | LOC: SJCVC 14:34 | PROVIDERS: ATTEND Internal Medicine Cardiovascular Disease | DX: R00.0 Tachycardia, unspecified (principal); R94.31 Abnormal electrocardiogram [ECG] [EKG]; I48.0 Paroxysmal atrial fibrillation; I49.5 Sick sinus syndrome; I48.3 Typical atrial flutter; E78.5 Hyperlipidemia, unspecified; I10 Essential (primary) hypertension; J44.9 Chronic obstructive pulmonary disease, unspecified; M19.90 Unspecified osteoarthritis, unspecified site; Z98.890 Other specified postprocedural states; Z95.0 Presence of cardiac pacemaker; Z79.899 Other long term (current) drug therapy; Z87.891 Personal history of nicotine dependence ==

== ENCOUNTER → 2020-08-06 | Outpatient (CLI) | payer OTHER, BC | LOC: SJCVCIMAG 14:14 | PROVIDERS: ATTEND Internal Medicine Cardiovascular Disease | DX: I08.8 Other rheumatic multiple valve diseases (principal); I27.20 Pulmonary hypertension, unspecified; I11.9 Hypertensive heart disease without heart failure; R94.31 Abnormal electrocardiogram [ECG] [EKG]; I48.0 Paroxysmal atrial fibrillation; I77.819 Aortic ectasia, unspecified site; E78.5 Hyperlipidemia, unspecified; J44.9 Chronic obstructive pulmonary disease, unspecified; I48.92 Unspecified atrial flutter; Z95.0 Presence of cardiac pacemaker; Z98.890 Other specified postprocedural states; Z88.0 Allergy status to penicillin; Z79.899 Other long term (current) drug therapy; Z87.891 Personal history of nicotine dependence ==